=== PATIENT | male | born 1995 | race Caucasian/White ===

== ENCOUNTER 2018-07-20 15:43 | Emergency (ER) | payer SELFPAY ==
[2018-07-20] MEDS ORDERED: Aspirin Chewable 81 MG TAB ONE (19:11)
== END 2018-07-20 16:13 | disposition home or self-care (01) ==
LOC: ERS 15:43
DX: S39.012A Strain of muscle, fascia and tendon of lower back, initial encounter (principal); F17.210 Nicotine dependence, cigarettes, uncomplicated; X50.1XXA Overexertion from prolonged static or awkward postures, initial encounter
CPT/HCPCS: 99281